=== PATIENT | male | born 1955 | race American Indian/Alaskan Native ===

== ENCOUNTER 2016-05-01 07:04 | Day surgery (SDC) | payer BC, MEDICARE ==
[~2016-05-01 07:04] MED LIST: NACL P/F VIAL (10 ML) ONE
[2016-05-01] MEDS ORDERED: DIPRIVAN 10 MG/ML IV ONE ×2 (07:36)
--- NOTE | 2016-05-01 07:58 | Anesthesia Consultation ---
Anesthesia Consult and Med Hx Date of service: 05/01/16 - Airway Anesthetic Teeth Evaluation: Dentures ROM Head & Neck: Adequate Mental/Hyoid Distance: Adequate Mallampati Class: Class II Intubation Access Assessment: Probably Good - Pulmonary Exam CTA: Yes (persistent cough present at exam) - Cardiac Exam Cardiac Exam: RRR - Pre-Operative Health Status ASA Pre-Surgery Classification: ASA3 Proposed Anesthetic Plan: MAC - Pulmonary Hx Smoking: Yes (<1PPD X 35 YRS;current 4-5 cig/day) Hx Asthma: No SOB: Yes (evenings) Hx Sleep Apnea: No - Cardiovascular System Hx Hypertension: Yes (Denies chest pain; given perioperative betablocker by PCP) Hx Coronary Artery Disease: No (EKG 03/21/15: NSR 77; CHF w/ lower extremity swelling) Hx Peripheral Vascular Disease: Yes - Central Nervous System Hx Psychiatric Problems: No - Gastrointestinal Hx Gastroesophageal Reflux Disease: No - Endocrine Hx Renal Disease: No Hx Non-Insulin Dependent Diabetes: No Hx Thyroid Disease: No Hx Hypothyroidism: Yes - Hematic Hx Anemia: No Hx Sickle Cell Disease: No - Other Systems Hx Alcohol Use: No Hx Substance Use: No Hx Cancer: No Hx Obesity: No
[2016-05-01] MEDS ORDERED: NACL 0.9% 1000 ML 1,000 ML IV SCH (08:00)
[2016-05-01] MEDS ORDERED: WATER FOR IRRIG STERILE IR ONE (08:54)
--- NOTE | 2016-05-01 09:08 | Anesthesia Consultation ---
Anesthesia Consult and Med Hx Date of service: 05/01/16 - Airway Anesthetic Teeth Evaluation: Dentures (upper, otherwise good dentition) ROM Head & Neck: Adequate Mental/Hyoid Distance: Adequate Mallampati Class: Class III Intubation Access Assessment: Probably Good - Pulmonary Exam CTA: Yes - Cardiac Exam Cardiac Exam: RRR - Pre-Operative Health Status ASA Pre-Surgery Classification: ASA2 Proposed Anesthetic Plan: MAC - Pulmonary Hx Smoking: Yes (<1PPD X 35 YRS; Quit 2007) Hx Asthma: No Hx Sleep Apnea: No - Cardiovascular System Hx Hypertension: Yes (controlled) Hx Coronary Artery Disease: No (EKG 03/21/15: NSR 77) - Central Nervous System Hx Psychiatric Problems: No - Gastrointestinal Hx Gastroesophageal Reflux Disease: No - Endocrine Hx Renal Disease: No Hx Non-Insulin Dependent Diabetes: No Hx Thyroid Disease: No - Hematic Hx Anemia: No Hx Sickle Cell Disease: No - Other Systems Hx Alcohol Use: No Hx Substance Use: No Hx Cancer: No Hx Obesity: No
--- NOTE | 2016-05-01 09:09 | Anesthesia Day of Surgery ---
Anesthesia Day of Surgery - Day of Surgery Patient Examined: Yes Patient H&P Reviewed: Yes Patient is NPO: Yes
[2016-05-01] MEDS ORDERED: NEO SYNEPHRINE/NS Syringe(OR USE) IV ONE (09:25)
[2016-05-01] MEDS ORDERED: XYLOCAINE MPF 2% ONE (09:25)
[2016-05-01 10:21] VITALS: BP 132/80
--- NOTE | 2016-05-01 10:44 | Post Anesthesia Evaluation ---
- Post Anesthesia Evaluation Patient Participated: Yes Airway Patent: Yes Stable Respiratory Function: Yes Nausea/Vomiting: No Temp > 96.8F: Yes Pain Manageable: Yes Adequeate Hydration: Yes Anesthesia Complications: No
--- NOTE | 2016-05-01 12:14 | Operative Report ---
PROCEDURE: Colonoscopy with cold forceps polypectomy. INDICATION: 1. History of polyps. 2. Colon cancer screening. 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 COMPLICATIONS: None. DESCRIPTION OF PROCEDURE: The patient was brought to procedure suite. The patient had the procedure discussed with him at length. All risks, complications, and benefits discussed after which the patient signed for the procedure to be performed. The patient was placed in left lateral decubitus position. Rectal exam performed prior to insertion of scope, which was normal. After adequate sedation medication as above, scope was inserted into the rectum and brought to the level of the cecum. Ileocecal valve and appendiceal orifice, cecal strap were visualized. Colonoscope was then removed and mucosa visualized. Prep quality was fair to poor. The patient's vital signs remained stable throughout the procedure. FINDINGS: There were few small to medium sigmoid and ascending colon diverticula noted. There were 2 small 3-4 mm sessile small polyps noted in the rectosigmoid area. Cold forceps polypectomy was applied with removal of this polyp and sent to pathology. Given a fair to poor prep, cannot rule out other small lesions. Retroflexion view performed in the rectum showed small to medium internal hemorrhoids. The patient tolerated the procedure well. No complications during the procedure. IMPRESSION: Fair to poor prep, so cannot rule out other small lesions. IMPRESSION: 1. Polyps x 2, status post polypectomy as noted above. 2. Diverticulosis. 3. Internal hemorrhoids. RECOMMENDATIONS: 1. Follow up biopsy results. 2. Avoid NSAIDs and aspirin for 5 days. 3. High fiber diet. 4. Repeat colonoscopy in 5 years. JOB# [id number] [facility]
== END 2016-05-01 07:05 | disposition home or self-care (01) ==
LOC: GIO 07:04
PROVIDERS: ATTEND Internal Medicine Gastroenterology
DX: Z12.11 Encounter for screening for malignant neoplasm of colon (principal); K63.5 Polyp of colon; K57.30 Diverticulosis of large intestine without perforation or abscess without bleeding; K64.8 Other hemorrhoids
CPT/HCPCS: 45380; 88305; J2370; J2704

== ENCOUNTER 2018-06-07 15:44 | Emergency (ER) | payer BC, MEDICARE ==
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
[2018-06-07 15:50] VITALS: BP 157/85
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
--- NOTE | 2018-06-07 16:42 | XRay Report ---
FINAL REPORT EXAM: XR SPINE LUMBOSACRAL 2-3V HISTORY: xr spine lumbar TECHNIQUE: AP, lateral and lumbosacral spot views of the lumbar spine. PRIORS: None. FINDINGS: There are five lumbar type vertebral bodies. Partial sacralization of the L5 vertebral body is seen. Normal alignment. No compression fracture. Mild multilevel disc space narrowing and anterior osteophyte formations are seen throughout the lumba r spine. Mild multilevel facet arthropathy is seen. The paravertebral soft tissues are normal. Atherosclerotic calculi are seen in the abdominal aorta. IMPRESSION: Mild multilevel degenerative disc disease and facet arthropathy of the lumbar spine.
--- NOTE | 2018-06-07 17:48 | XRay Report ---
FINAL REPORT PROCEDURE: Right knee. TECHNIQUE: Three views. HISTORY: Right knee pain. COMPARISON: No prior studies are available for comparison. FINDINGS: The bones appear intact without fracture or dislocation. There is a total knee prosthesis in place. T he soft tissues are unremarkable. There are some sclerotic densities in the distal femur and proximal tibia. These may represent previous bone infarcts. IMPRESSION: Satisfactory appearing knee prosthesis. Possible old bone infarcts.
== END 2018-06-07 17:16 | disposition home or self-care (01) ==
LOC: ED 15:44
DX: S39.012A Strain of muscle, fascia and tendon of lower back, initial encounter (principal); S80.01XA Contusion of right knee, initial encounter; I10 Essential (primary) hypertension; Z79.82 Long term (current) use of aspirin; Z96.659 Presence of unspecified artificial knee joint; V87.7XXA Person injured in collision between other specified motor vehicles (traffic), initial encounter; Y93.89 Activity, other specified; Y92.488 Other paved roadways as the place of occurrence of the external cause; Y99.8 Other external cause status
CPT/HCPCS: 72100; 99283

== ENCOUNTER 2018-06-16 06:07 | Outpatient (CLI) | payer BC, MEDICARE ==
--- NOTE | 2018-06-16 07:50 | Cat Scan Report ---
CT LOWER EXTREMITY RIGHT WITHOUT CONTRAST HISTORY: Right knee pain. TECHNIQUE: Helical CT in 1.25 mm intervals through the right knee with sagittal and coronal reformatted images. COMPARISON: Right knee films dated 06/07/18. CT right lower extremity dated 09/21/14. FINDINGS: The right knee prosthesis generates moderate artifact particularly at the level of the distal femur which limits resolution on some images. Having said that, the knee prosthesis appears to be in good position. There is no evidence for acute fracture or lucency surrounding the hardware to suggest infection or loosening. Articulation at the joint space appears anatomic. A small joint effusion is identified extending to the suprapatellar bursa. Mild osteopenia is evident. 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 IMPRESSION: Small joint effusion of uncertain etiology. Osteopenia. 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 Unremarkable appearance of the knee prosthesis. If further evaluation is needed, triple phase bone scan may prove useful.
== END 2018-06-16 06:08 | disposition home or self-care (01) ==
LOC: CT 06:07
PROVIDERS: ATTEND Orthopaedic Surgery
DX: M25.461 Effusion, right knee (principal); M85.861 Other specified disorders of bone density and structure, right lower leg; I10 Essential (primary) hypertension; M19.90 Unspecified osteoarthritis, unspecified site; Z87.891 Personal history of nicotine dependence
CPT/HCPCS: 36415; 85652; 86140

== ENCOUNTER 2019-01-28 09:11 | Emergency (ER) | payer OTHER, BC, MEDICARE ==
[2019-01-28 09:20] VITALS: BP 161/88
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
[2019-01-28] MEDS ORDERED: IBUPROFEN PO ONE (10:25)
--- NOTE | 2019-01-28 11:00 | XRay Report ---
LUMBAR SPINE HISTORY: Low back pain. COMPARISON: None. TECHNIQUE: 3 view(s) of the lumbar spine obtained. FINDINGS: Vertebrae: Normal alignment. No fracture or significant abnormality. Disc Spaces:L2-3 degenerative disc disease with increased density of the disc and a small anterior os teophyte. Lesser degenerative disc disease at L3-4. Facet Joints:No significant abnormality. Additional findings: Bilateral L5 sacralization which is a normal variant. IMPRESSION: 1. Moderate degenerative disc disease at L2-3 and milder degenerative disc disease at L3-4. 2. Bilateral L5 sacralization. 3. No pars defect. Signer Name: Jacek Honeycutt MD Signed: 01/28/2019 10:56 AM Workstation Name: [id number]
--- NOTE | 2019-01-28 11:01 | XRay Report ---
Right knee, 3 views INDICATION: Chronic right knee pain, postop COMPARISON: 06/07/2018 FINDINGS: A right total knee prosthesis remains in place in good position. There is no definite evide nce of loosening or infection. Bone infarcts involving the distal femur and proximal tibia are seen a s well. No fracture or joint effusion. No acute abnormality and no appreciable change. Signer Name: Raphael Valladares MD Signed: 01/28/2019 10:56 AM Workstation Name: [id number]
== END 2019-01-28 11:33 | disposition home or self-care (01) ==
LOC: ED 09:11
DX: S66.911A Strain of unspecified muscle, fascia and tendon at wrist and hand level, right hand, initial encounter (principal); S86.911A Strain of unspecified muscle(s) and tendon(s) at lower leg level, right leg, initial encounter; M54.5 Low back pain; I10 Essential (primary) hypertension; Z91.013 Allergy to seafood; Z88.8 Allergy status to other drugs, medicaments and biological substances; Z79.82 Long term (current) use of aspirin; Z79.899 Other long term (current) drug therapy; Z96.653 Presence of artificial knee joint, bilateral; V89.2XXA Person injured in unspecified motor-vehicle accident, traffic, initial encounter; Y93.89 Activity, other specified; Y92.488 Other paved roadways as the place of occurrence of the external cause; Y99.8 Other external cause status
CPT/HCPCS: 72100; 99283

== ENCOUNTER 2019-03-17 12:31 | Outpatient (CLI) | payer BC, MEDICARE ==
--- NOTE | 2019-03-17 14:43 | Cat Scan Report ---
. CT lower extremity RT wo con INDICATION: Z96.651 PRESENCE OF RIGHT ARTIFICAL/HISTORY OF TOTAL KNEE ARTHROP. Right knee pain TECHNIQUE: All CT scans at this location are performed using the following dose modulation technique: Automated exposure control. COMPARISON: Right knee x-ray 01/28/2019, right knee CT 06/16/2018 FINDINGS: A right total knee arthroplasty is again noted without periprosthetic fracture or osteolysis to sugge st loosening/hardware failure. 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 No subcutaneous edema or soft tissue swelling is seen. No knee effusion or intra-articular body is seen. IMPRESSION: 1. 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 2. Right total knee arthroplasty again noted without periprosthetic fracture, loosening or hardware f ailure. Signer Name: Venu Duran MD Signed: 03/17/2019 2:39 PM Workstation Name: [id number]
== END 2019-03-17 12:32 | disposition home or self-care (01) ==
LOC: CT 12:31
PROVIDERS: ATTEND Internal Medicine
DX: M54.5 Low back pain (principal); I10 Essential (primary) hypertension; Z96.652 Presence of left artificial knee joint; Z96.651 Presence of right artificial knee joint

== ENCOUNTER 2021-08-07 11:26 | Emergency (ER) | payer BC, MEDICARE ==
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
[2021-08-07 13:41] VITALS: BP 128/86
== END 2021-08-07 13:40 | disposition home or self-care (01) ==
LOC: ED 11:26
DX: T14.8XXA Other injury of unspecified body region, initial encounter (principal); I10 Essential (primary) hypertension; M19.90 Unspecified osteoarthritis, unspecified site; Z88.8 Allergy status to other drugs, medicaments and biological substances; Z91.013 Allergy to seafood; Z79.82 Long term (current) use of aspirin; Z79.899 Other long term (current) drug therapy; V87.7XXA Person injured in collision between other specified motor vehicles (traffic), initial encounter; Y93.89 Activity, other specified; Y92.488 Other paved roadways as the place of occurrence of the external cause; Y99.8 Other external cause status
CPT/HCPCS: 99282